=== PATIENT | female | born 1975 | race Hispanic/Latino ===

== ENCOUNTER 2018-10-13 17:40 | Emergency (ER) | payer BC ==
--- NOTE | 2018-10-13 18:31 | RAD ---
EXAM: XR Chest, 1 View CLINICAL HISTORY: palpitations TECHNIQUE: Frontal view of the chest. COMPARISON: No relevant prior studies available. FINDINGS: Limitations: None. Lungs: Unremarkable. No consolidation. Pleural space: Unremarkable. No pneumothorax. Heart: Unremarkable. No cardiomegaly. Mediastinum: Unremarkable. Bones/joints: Unremarkable. IMPRESSION: No abnormality noted. Electronically signed by: Terri Kimble MD 10/13/2018 6:29 PM CDT
--- NOTE | 2018-10-13 19:00 | ED.PDOC ---
History of Present Illness - General Chief Complaint: Cardiovascular Problem Stated Complaint: Palpitations Time Seen by Provider: 10/13/18 17:46 Source: patient Exam Limitations: no limitations - History of Present Illness Initial Comments: The patient's 43-year-old female presented to the emergency room secondary to an episode of tachycardia. The patient has had multiple episodes of tachycardia in the past and has had workups with electrophysiology and hay baler. She does take daily digoxin for it. She felt like it was going extremely fast today and she was feeling short of breath. It resolved by the time EMS arrived. She reports that it lasted 30-40 minutes. No real chest pain just palpitations. She did feel a little diaphoretic. She had just eaten lunch. No syncope. No traumas. Timing/Duration: 1/2 hour Severity: moderate Improving Factors: nothing Worsening Factors: nothing Associated Symptoms: diaphoresis Allergies/Adverse Reactions: Allergies NO KNOWN ALLERGY Allergy (Verified 10/13/18 17:49) Home Medications: Ambulatory Orders Digoxin [Digox] 0.125 mg PO DAILY 10/13/18 Review of Systems - Review of Systems Constitutional: States: malaise EENTM: States: no symptoms reported Respiratory: States: no symptoms reported Cardiology: States: palpitations Gastrointestinal/Abdominal: States: no symptoms reported Genitourinary: States: no symptoms reported Musculoskeletal: States: no symptoms reported Skin: States: no symptoms reported Neurological: States: no symptoms reported All other Systems: No Change from Baseline Past Medical History (General) - Patient Medical History Hx Stroke: No Hx Cardiac Disorders: Yes - Arrhythmia Hx Congestive Heart Failure: No Hx Diabetes: No - Vaccination History Hx Influenza Vaccination: Yes - 2018 - Social History Hx Tobacco Use: No Hx Alcohol Use: No Hx Substance Use: No - Female History Patient is a Female of Child Bearing Age (10 -59 yrs old): Yes Patient : No Family Medical History - Family History Mother Family History: No Known Living Status: Still Living Physical Exam - Physical Exam General Appearance: Alert, Anxious Eye Exam: bilateral normal Ears, Nose, Throat: hearing grossly normal, normal ENT inspection Neck: full range of motion, supple Respiratory: lungs clear, normal breath sounds, no respiratory distress, no acc essory muscle use Cardiovascular/Chest: normal peripheral pulses, regular rate, rhythm, no edema Peripheral Pulses: radial,right: 2+, radial,left: 2+, dorsalis pedis,right: 2+, dorsalis pedis,left: 2+ Gastrointestinal/Abdominal: non tender, soft Rectal Exam: deferred Back Exam: no CVA tenderness, no vertebral tenderness Extremity: non-tender, normal inspection, no pedal edema, no calf tenderness, normal capillary refill Neurologic: relay associate II-XII nml as tested, alert, normal mood/affect, oriented x 3 Skin Exam: normal color Comments: Vital Signs - 24 hr 10/13/18 10/13/18 17:40 18:32 Temperature 97.2 F L Pulse Rate [ 95 H 87 Apical] Respiratory 20 18 Rate Blood Pressure 131/100 97/65 [Left Arm] O2 Sat by Pulse 99 99 Oximetry Progress - Progress Progress: 10/13/18 19:02 the patient a 43-year-old female presenting to the emergency room secondary to an episode ofparoxysmal tachycardia. This had resolved by the time EMS arrived and did not resume while she was monitored here. She remained in normal sinus rhythm with a fairly labile blood pressure. Systolic blood pressures range from the 90s to the 130s. No evidence of significant orthostasis. Laboratory work, EKG and chest x-ray are grossly within normal limits. She needs to continue her digoxin recommended at a nightly dose. She does need to contact her hay baler tomorrow and let them know of the episode today. She does need to keep well hydrated. Keep follow-up with her primary care doctor as well. she should also obtain a blood pressure cuff for as needed use. - Results/Orders Results/Orders: 10/13/18 17:46 Telemetry .CONTINUOUS 10/13/18 18:00 EKG STAT normal sinus rhythm at 81 bpm. Normal QT interval. Normal axis. No ST segment or T-wave changes indicative of acute ischemia. Possible early right bundle branch. Mild left atrial dilation. Chest x-ray shows no acute pathology. tilt vital signs are grossly within normal limits. Laboratory Results - last 24 hr 10/13/18 10/13/18 10/13/18 18:00 18:00 18:00 WBC RBC Hgb Hct MCV MCH MCHC RDW Plt Count MPV Absolute Neuts (auto) Absolute Lymphs (auto) Absolute Monos (auto) Absolute Eos (auto) Absolute Basos (auto) Neutrophils % Lymphocytes % Monocytes % Eosinophils % Basophils % Sodium 139 Potassium 3.7 Chloride 107 Carbon Dioxide 21 Anion Gap 14.7 BUN 9 Creatinine 0.50 L BUN/Creatinine Ratio 18.0 POC Glucose 103 Random Glucose 111 H Serum Osmolality 276.9 Lactic Acid 1.4 Calcium 9.1 Magnesium 2.1 Total Bilirubin 0.7 AST 28 ALT 29 Alkaline Phosphatase 69 Creatine Kinase 61 CK-MB (CK-2) 1.1 CK-MB (CK-2) % Not Reportable Troponin I < 0.02 B-Natriuretic Peptide < 5.0 Serum Total Protein 7.8 Albumin 4.2 Globulin 3.6 H Albumin/Globulin Ratio 1.2 TSH 4.45 Urine Color Urine Appearance Urine pH Ur Specific [place] Urine Protein Urine Glucose (UA) Urine Ketones Urine Blood Urine Nitrite Urine Bilirubin Urine Urobilinogen Ur Leukocyte Esterase Urine RBC Urine WBC Ur Epithelial Cells Amorphous Sediment Urine Bacteria Urine HCG, Qual Digoxin 10/13/18 10/13/18 10/13/18 18:00 18:00 18:15 WBC 8.2 RBC 4.32 Hgb 13.1 Hct 38.8 MCV 90.0 MCH 30.3 MCHC 33.6 RDW 15.4 H Plt Count 254 MPV 9.5 Absolute Neuts (auto) 4.50 Absolute Lymphs (auto) 2.60 Absolute Monos (auto) 1.00 H Absolute Eos (auto) 0.00 Absolute Basos (auto) 0.10 Neutrophils % 54.9 Lymphocytes % 31.4 Monocytes % 12.6 H Eosinophils % 0.4 L Basophils % 0.7 Sodium Potassium Chloride Carbon Dioxide Anion Gap BUN Creatinine BUN/Creatinine Ratio POC Glucose Random Glucose Serum Osmolality Lactic Acid Calcium Magnesium Total Bilirubin AST ALT Alkaline Phosphatase Creatine Kinase CK-MB (CK-2) CK-MB (CK-2) % Troponin I B-Natriuretic Peptide Serum Total Protein Albumin Globulin Albumin/Globulin Ratio TSH Urine Color Urine Appearance Urine pH Ur Specific [place] Urine Protein Urine Glucose (UA) Urine Ketones Urine Blood Urine Nitrite Urine Bilirubin Urine Urobilinogen Ur Leukocyte Esterase Urine RBC Urine WBC Ur Epithelial Cells Amorphous Sediment Urine Bacteria Urine HCG, Qual Negative Digoxin 0.3 L 10/13/18 18:15 WBC RBC Hgb Hct MCV MCH MCHC RDW Plt Count MPV Absolute Neuts (auto) Absolute Lymphs (auto) Absolute Monos (auto) Absolute Eos (auto) Absolute Basos (auto) Neutrophils % Lymphocytes % Monocytes % Eosinophils % Basophils % Sodium Potassium Chloride Carbon Dioxide Anion Gap BUN Creatinine BUN/Creatinine Ratio POC Glucose Random Glucose Serum Osmolality Lactic Acid Calcium Magnesium Total Bilirubin AST ALT Alkaline Phosphatase Creatine Kinase CK-MB (CK-2) CK-MB (CK-2) % Troponin I B-Natriuretic Peptide Serum Total Protein Albumin Globulin Albumin/Globulin Ratio TSH Urine Color Yellow Urine Appearance Clear Urine pH 6.5 Ur Specific [place] 1.010 Urine Protein Negative Urine Glucose (UA) Negative Urine Ketones Negative Urine Blood Negative Urine Nitrite Negative Urine Bilirubin Negative Urine Urobilinogen 0.2 Ur Leukocyte Esterase Negative Urine RBC 0 Urine WBC 0 Ur Epithelial Cells 0-1 Amorphous Sediment 1+ Urine Bacteria 0 Urine HCG, Qual Digoxin Departure - Departure Clinical Impression: Paroxysmal tachycardia, unspecified Disposition: Discharge to Home or Self Care Condition: Fair Departure Forms: ED Discharge - Pt. Copy, Patient Portal Self Enrollment Instructions: Palpitations (DC) Diet: regular diet Activity: increase activity as tolerated Referrals: UNKNOWN,PHYSICIAN [Primary Care Provider] - 1-2 Weeks Home Medications: Ambulatory Orders Digoxin [Digox] 0.125 mg PO DAILY 10/13/18 Additional Instructions: the patient a 43-year-old female presenting to the emergency room secondary to an episode ofparoxysmal tachycardia. This had resolved by the time EMS arrived and did not resume while she was monitored here. She remained in normal sinus rhythm with a fairly labile blood pressure. Systolic blood pr essures range from the 90s to the 130s. No evidence of significant orthostasis. Laboratory work, EKG and chest x-ray are grossly within normal limits. She needs to continue her digoxin recommended at a nightly dose. She does need to contact her hay baler tomorrow and let them know of the episode today. She does need to keep well hydrated. Keep follow-up with her primary care doctor as well. she should also obtain a blood pressure cuff for as needed use.
[2018-10-13 19:03] VITALS: O2SAT 98
[2018-10-13 19:24] VITALS: BP 107/73; TEMP 97.8
== END 2018-10-13 19:24 | disposition home or self-care (01) ==
LOC: ER 17:40
DX: I47.9 Paroxysmal tachycardia, unspecified (principal)

== ENCOUNTER 2019-06-19 03:24 | Emergency (ER) | payer BC ==
[2019-06-19] MEDS ORDERED: SODIUM CHLORIDE 0.9% (FLUSH) 10 ML SYG IV PRN (03:31)
--- NOTE | 2019-06-19 04:00 | ED.PDOC ---
History of Present Illness - General Chief Complaint: Neuro Symptoms/Deficits Stated Complaint: unable to speak Time Seen by Provider: 06/19/19 03:29 Source: patient, family - History of Present Illness Initial Comments: 44 yo female who is bib from home for cc of trouble speaking. Onset acutely while awake and having an argument with her at home. Pt with marked difficulty in verbal communication but able to communicate via writing. States she knows the words she wants to say but they don't come out right when she talks - comes out as "garbled speech." states this has actually happened before in the last year or so but lasted for only about 15 minutes and resolved on its own at home. Also reports acute headache to the left side of her head which began at the same time as her speech symptoms. Currently rates as a 6/10 severity but states is waxing and waning in nature. Pt denies any other acute symptoms. Denies any weakness, numbness, hearing/vision changes, c hest pain, dyspnea, abd pain, n/v/d, leg swelling, cough, fevers. Pt has some hx of recurrent chest pains and is also being evaluated by Dr. Benjamin" at [facility]. 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 She admits to not taking the Ranolazine as she should. Allergies/Adverse Reactions: Allergies NO KNOWN ALLERGY Allergy (Verified 10/13/18 17:49) Home Medications: Ambulatory Orders Aspirin [(None)] 325 mg PO QD 06/19/19 RX: Nitroglycerin 0.4 mg SL 06/19/19 Ranolazine [Ranexa] 500 mg PO BID 06/19/19 Review of Systems - Review of Systems Review of Systems: 06/19/19 04:01 as per HPI All other Systems: Reviewed and Negative Past Medical History (General) - Patient Medical History Hx Stroke: No Hx Cardiac Disorders: Yes - Arrhythmia, Microvascular Angina Hx Congestive Heart Failure: No Hx Diabetes: No - Vaccination History Hx Tetanus, Diphtheria Vaccination: No Hx Influenza Vaccination: No Hx Pneumococcal Vaccination: No Immunizations Up to Date: No - Social History Hx Tobacco Use: No Hx Alcohol Use: No Hx Substance Use: No - Female History Patient is a Female of Child Bearing Age (10 -59 yrs old): Yes Patient : No - Triage Comment ED Triage Comment: Patient denies any chance that she could be despite LMP Family Medical History - Family History Mother Family History: No Known Living Status: Still Living Physical Exam - Physical Exam General Appearance: Alert, Anxious Eye Exam: bilateral normal Ears, Nose, Throat: hearing grossly normal, normal ENT inspection, normal pharynx Neck: non-tender, full range of motion, supple, normal inspection Respiratory: lungs clear, normal breath sounds, no respiratory distress, no accessory muscle use Cardiovascular/Chest: normal peripheral pulses, regular rate, rhythm, no edema, no murmur Peripheral Pulses: radial,right: 2+, radial,left: 2+ Gastrointestinal/Abdominal: non tender, soft, no organomegaly Back Exam: normal inspection, no CVA tenderness, no vertebral tenderness Extremity: normal range of motion, non-tender, normal inspection, no pedal edema, no calf tenderness Neurologic: running rigger II-XII nml as tested, no motor/sensory deficits, alert, normal mood/affect, oriented x 3, aphasia - Speech is fluent and all words are comprehensible but words are slightly slurred and spoken in a manner similar to a deaf person. Able to distinguish 3 items with ease. Able to communicate via pen and paper without any issues. Skin Exam: normal color, warm/dry Progress - Progress Progress: 06/19/19 04:05 Acute aphasia -isolated symptom but significant impairment -concern for acute CVA. Consider also psychosomatic, anxiety, abuse, ICH, other -initial NIH score of 3 (severe aphasia + ?slurred speech) but causing significant functional impairment -stat CT head and stroke protocol, urgent neurology consult once CT head read back for potential tPA if no hemorrhage present -labs, EKG, CXR, UA 06/19/19 04:45 -CT head report slightly delayed given technical issues so verbal report given to me - no acute processes -Spoke with Dr. Marinelli at [facility] in [place] who advises no tPA to be given. Feels not c/w true stroke presentation/pattern. 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 She advises transfer to the ED there for MRI brain imaging, which is not available here until Thursday morning unfortunately. -Discussed with pt & her who are in agreement with this plan. All questions answered. Will give ASA 324 mg PO as precautionary measure. -Remains stable, will go via ground EMS. Michael Garcia MD Billing #[id number] 06/19/19 03:31 IV Care:Saline Lock per Protoc QSHIFT Telemetry .ONCE 06/19/19 03:45 EKG STAT Laboratory Results - last 24 hr 06/19/19 06/19/19 06/19/19 03:37 03:37 03:37 WBC 7.9 RBC 4.23 Hgb 13.1 Hct 38.8 MCV 91.5 MCH 30.9 MCHC 33.8 RDW 15.4 H Plt Count 244 MPV 10.2 Absolute Neuts (auto) 5.40 Absolute Lymphs (auto) 1.50 Absolute Monos (auto) 0.90 H Absolute Eos (auto) 0.00 Absolute Basos (auto) 0.00 Neutrophils % 68.2 Lymphocytes % 19.6 L Monocytes % 11.4 H Eosinophils % 0.2 L Basophils % 0.6 PT 10.5 INR 1.06 PTT (SP) 24.7 Sodium 137 Potassium 3.8 Chloride 107 Carbon Dioxide 18 L Anion Gap 15.8 BUN 16 Creatinine 0.68 BUN/Creatinine Ratio 23.5 H Random Glucose 114 H Serum Osmolality 275.9 Calcium 9.4 Total Bilirubin 0.8 AST 24 ALT 25 Alkaline Phosphatase 60 Troponin I B-Natriuretic Peptide < 5.0 Serum Total Protein 8.1 Albumin 4.4 Globulin 3.7 H Albumin/Globulin Ratio 1.2 Urine Color Urine Appearance Urine pH Ur Specific [place] Urine Protein Urine Glucose (UA) Urine Ketones Urine Blood Urine Nitrite Urine Bilirubin Urine Urobilinogen Ur Leukocyte Esterase Urine RBC Urine WBC Ur Epithelial Cells Urine Bacteria 06/19/19 06/19/19 03:37 04:10 WBC RBC Hgb Hct MCV MCH MCHC RDW Plt Count MPV Absolute Neuts (auto) Absolute Lymphs (auto) Absolute Monos (auto) Absolute Eos (auto) Absolute Basos (auto) Neutrophils % Lymphocytes % Monocytes % Eosinophils % Basophils % PT INR PTT (SP) Sodium Potassium Chloride Carbon Dioxide Anion Gap BUN Creatinine BUN/Creatinine Ratio Random Glucose Serum Osmolality Calcium Total Bilirubin AST ALT Alkaline Phosphatase Troponin I < 0.02 B-Natriuretic Peptide Serum Total Protein Albumin Globulin Albumin/Globulin Ratio Urine Color Yellow Urine Appearance Clear Urine pH 5.5 Ur Specific [place] 1.020 Urine Protein Negative Urine Glucose (UA) Negative Urine Ketones Negative Urine Blood Negative Urine Nitrite Negative Urine Bilirubin Negative Urine Urobilinogen 0.2 Ur Leukocyte Esterase Negative Urine RBC 0 Urine WBC 0 Ur Epithelial Cells 3-5 Urine Bacteria 0 - EKG/XRAY/CT EKG: Sinus - NSR, HR 90, no ST elevs or q waves, nonspecific min ST segment changes in inf & lateral leads noted, axis & intervals normal, appears largely unchanged from 10/13/18 EKG. XRAY: chest - no acute processes per my read Departure - Departure Clinical Impression: Aphasia Time of Disposition: 04:59 Disposition: Transfer to Hospital Condition: Fair Departure Forms: ED Discharge - Pt. Copy, Patient Portal Self Enrollment Referrals: UNKNOWN,PHYSICIAN [Primary Care Provider] - 1-2 Weeks Home Medications: Ambulatory Orders Aspirin [(None)] 325 mg PO QD 06/19/19 RX: Nitroglycerin 0.4 mg SL 06/19/19 Ranolazine [Ranexa] 500 mg PO BID 06/19/19 Transfer to Outside Facility - Transfer Information Decision to Transfer Date: 06/19/19 Decision to Transfer Time: 05:00 Reason for Transfer: required specialist not available - neurology Accepting Provider:: Dr. Mc Accepting Facility: [facility]
[2019-06-19 04:03] VITALS: O2SAT 100
[2019-06-19] MEDS ORDERED: ALTEPLASE 0 MG ONE (04:14)
--- NOTE | 2019-06-19 04:53 | CT ---
CT head without contrast on 06/19/2019 CLINICAL INDICATION: Acute aphasia TECHNIQUE: Multiple axial images are obtained throughout the head without the administration of contrast. This exam was performed according to our departmental dose-optimization program, which includes automated exposure control, adjustment of the mA and/or kV according to patient size and/or use of iterative reconstruction technique. Total DLP is 859.97 mGy*cm. COMPARISON: None FINDINGS: There is no hydrocephalus. There is no CT evidence of acute infarct. There is no hemorrhage. There are no abnormal extra-axial fluid collections. There is no mass, mass effect or midline shift. No bony abnormality is noted. IMPRESSION: No acute intracranial abnormality. Initially there was technical difficulty and this exam was unavailable to be dictated. A verbal report was given by myself by phone to Dr. Michael Garcia on 06/19/2019 at 4:34 AM. Electronically signed by: Jeff Tapia 06/19/2019 4:52 AM CDT
--- NOTE | 2019-06-19 04:55 | RAD ---
EXAM: XR Chest, 1 View CLINICAL HISTORY: The patient is 44 years old and is Female; stroke-like symptoms TECHNIQUE: Frontal view of the chest. COMPARISON: No relevant prior studies available. FINDINGS: LUNGS: Unremarkable. No consolidation. PLEURAL SPACE: Unremarkable. No pneumothorax. HEART: Unremarkable. No cardiomegaly. MEDIASTINUM: Unremarkable. BONES/JOINTS: Unremarkable. IMPRESSION: No acute cardiopulmonary process. Electronically signed by: Lizette Velásquez MD 06/19/2019 4:54 AM CDT
[2019-06-19 05:03] VITALS: BP 103/70
[2019-06-19 05:06] VITALS: TEMP 99.3
[2019-06-19] MEDS ORDERED: ASPIRIN (CHEWABLE) 81 MG TAB PO ONE (05:20)
== END 2019-06-19 05:27 | disposition short-term general hospital (02) ==
LOC: ER 03:24
DX: R47.01 Aphasia (principal); R51 Headache; I20.8 Other forms of angina pectoris; Z79.899 Other long term (current) drug therapy; Z79.82 Long term (current) use of aspirin

== ENCOUNTER 2020-01-19 15:30 | Emergency (ER) | payer BC ==
--- NOTE | 2020-01-19 15:49 | ED.PDOC ---
History of Present Illness - General Chief Complaint: Headache Stated Complaint: Occipital headache, burry vision, dizziness Time Seen by Provider: 01/19/20 15:32 Source: patient, RN notes reviewed, Vital Signs reviewed Exam Limitations: no limitations - History of Present Illness Initial Comments: 44 yo F comes in with c/c of occipital headache. states it was sharp, lasted 7- 10 minutes. started while she was at work. States she use to get these all the time, but has not had one in 2 months. States she was going to come to the ER, but they checked her bp at it was 170 systolic. Does not have hx of HTN. currently no headache, no weakness, no change in vision. She also states she got what felt like a hot flash during this episode. no chest pain , shortness of breath or fever. Allergies/Adverse Reactions: Allergies NO KNOWN ALLERGY Allergy (Verified 01/19/20 15:53) Past Medical History (General) - Patient Medical History Hx Stroke: No Hx Cardiac Disorders: Yes - Arrhythmia, Microvascular Angina Hx Congestive Heart Failure: No Hx Diabetes: No - Vaccination History Hx Tetanus, Diphtheria Vaccination: No Hx Influenza Vaccination: No Hx Pneumococcal Vaccination: No - Social History Hx Tobacco Use: No Hx Alcohol Use: No Hx Substance Use: No - Female History Hx Last Menstrual Period: 04/21/19 Patient : No Family Medical History - Family History Mother Family History: No Known Living Status: Still Living Physical Exam - Physical Exam General Appearance: Alert, Comfortable, No apparent distress, Well Developed, Well Groomed, Well Hydrated, Well Nourished Eyes, Ears, Nose, Throat Exam: PERRL/EOMI, normal ENT inspection, TMs normal Neck: non-tender, full range of motion, supple, normal inspection, trachea midli ne Cardiovascular/Chest: normal peripheral pulses, regular rate, rhythm, no edema, no gallop, no JVD, no murmur Respiratory: chest non-tender, lungs clear, normal breath sounds, no respiratory distress, no accessory muscle use Gastrointestinal/Abdominal: normal bowel sounds, non tender, soft, no organomegaly Back Exam: normal inspection Extremity: normal range of motion, normal inspection, no calf tenderness Mental Status: alert, oriented x 3 surgical scrub tech Exam: normal hearing, normal speech, PERRL Coordination/Gait: normal finger to nose, normal gait, negative Romberg's sign Motor/Sensory: no motor deficit, no sensory deficit, no pronator drift Skin Exam: warm/dry, normal color Progress - Progress Progress: 01/19/20 16:26 01/19/20 16:00 TROPONIN-I Stat Laboratory Results WBC 6.6 K/mm3 (4.8-10.8) 01/19/20 16:00 RBC 4.08 M/mm3 (4.20-5.40) L 01/19/20 16:00 Hgb 12.3 gm/dL (12.0-16.0) 01/19/20 16:00 Hct 36.5 % (36.0-47.0) 01/19/20 16:00 MCV 89.6 fl (81.0-99.0) 01/19/20 16:00 MCH 30.2 pg (27.0-31.0) 01/19/20 16:00 MCHC 33.7 g/dL (33.0-37.0) 01/19/20 16:00 RDW 15.6 % (11.5-14.5) H 01/19/20 16:00 Plt Count 241 K/mm3 (130-400) 01/19/20 16:00 MPV 9.3 fl (7.40-10.4) 01/19/20 16:00 Absolute Neuts (auto) 3.90 K/uL (1.8-6.8) 01/19/20 16:00 Absolute Lymphs (auto) 1.80 K/uL (1.0-3.4) 01/19/20 16:00 Absolute Monos (auto) 0.80 K/uL (0.2-0.8) 01/19/20 16:00 Absolute Eos (auto) 0.00 K/uL (0.0-0.4) 01/19/20 16:00 Absolute Basos (auto) 0.10 K/uL (0.0-0.1) 01/19/20 16:00 Neutrophils % 58.6 % (42.0-78.0) 01/19/20 16:00 Lymphocytes % 27.6 % (20.0-50.0) 01/19/20 16:00 Monocytes % 12.4 % (2.0-9.0) H 01/19/20 16:00 Eosinophils % 0.4 % (1.0-5.0) L 01/19/20 16:00 Basophils % 1.0 % (0.0-2.0) 01/19/20 16:00 Sodium 138 mmol/L (135-145) 01/19/20 16:00 Potassium 3.6 mmol/L (3.6-5.0) 01/19/20 16:00 Chloride 104 mmol/L (101-111) 01/19/20 16:00 Carbon Dioxide 26 mmol/L (21-31) 01/19/20 16:00 Anion Gap 11.6 (12-18) L 01/19/20 16:00 BUN 10 mg/dL (7-18) 01/19/20 16:00 Creatinine 0.63 mg/dL (0.6-1.3) 01/19/20 16:00 BUN/Creatinine Ratio 15.9 (10-20) 01/19/20 16:00 Random Glucose 108 mg/dL (70-105) H 01/19/20 16:00 Serum Osmolality 275.3 mOsm/L (275-295) 01/19/20 16:00 Calcium 8.7 mg/dL (8.4-10.2) 01/19/20 16:00 Magnesium 2.1 mg/dL (1.8-2.5) 01/19/20 16:00 Total Bilirubin 0.7 mg/dL (0.2-1.0) 01/19/20 16:00 AST 20 IU/L (10-42) 01/19/20 16:00 ALT 28 IU/L (10-60) 01/19/20 16:00 Alkaline Phosphatase 75 IU/L (42-121) 01/19/20 16:00 Serum Total Protein 7.6 gm/dL (6.4-8.2) 01/19/20 16:00 Albumin 4.0 g/dl (3.2-5.5) 01/19/20 16:00 Globulin 3.6 gm/dL (2.3-3.5) H 01/19/20 16:00 Albumin/Globulin Ratio 1.1 (1.1-1.9) 01/19/20 16:00 01/19/20 16:27 The data reviewed when caring for this patient included: nurse notes, prior records, etc. The history and assessments from nurses notes were reviewed and considered, and the patient's home medication list was also reviewed and considered. My assessment and the results of testing completed here in the ED were discussed with the patient/family. All questions were answered, and they express understanding of my assessment and the plan. They have been instructed to return if their symptoms worsen, and have been asked to follow up with their primary care physician to recheck today's presenting complaint. return precautions given. I have reviewed medication, benefits, alternatives and side effects. Patient decided to proceed with medication. Colleen Razo DO #[id number] - EKG/XRAY/CT CT: head no acute ic pathology. Departure - Departure Clinical Impression: Headache Qualifiers: Headache type: unspecified Headache chronicity pattern: unspecified pattern Intractability: not intractable Qualified Code(s): R51.9 - Headache, unspecified ICD-10 Supporting Text: elevated bp without diagnosis of htn Time of Disposition: 16:26 Disposition: Discharge to Home or Self Care Departure Forms: ED Discharge - Pt. Copy, Patient Portal Self Enrollment Instructions: DI for Headache, Headache, Adult Diet: resume usual diet Activity: increase activity as tolerated Additional Instructions: Magnesium oxide 400 mg every days as needed for headaches. Follow up with your primary care physician.
[2020-01-19 15:53] VITALS: O2SAT 99
--- NOTE | 2020-01-19 16:20 | CT ---
EXAM DESCRIPTION: Head CLINICAL HISTORY: headache COMPARISON: June 19, 2019 TECHNIQUE: Noncontrast transaxial CT images of the head are obtained from base to vertex. This exam was performed according to our departmental dose-optimization program, which includes automated exposure control, adjustment of the mA and/or kV according to patient size and/or use of iterative reconstruction technique. FINDINGS: The midline structures are not displaced. The sulci are age appropriate. The lateral, third, and fourth ventricles are normal in size, shape, and anatomic positioning. There is no evidence of mass, mass effect, hydrocephalus, or acute intracranial hemorrhage. No abnormal extra axial fluid collections are seen. Normal whittaker-white differentiation is seen. The visualized bone windows show no depressed skull fracture or significant abnormality. The visualized paranasal sinuses and mastoid air cells are clear. IMPRESSION: 1. No acute abnormality is seen on noncontrast CT of the head. Electronically signed by: Jono Fisher MD 01/19/2020 4:18 PM [facility]
[2020-01-19 16:54] VITALS: BP 100/75; TEMP 97.5
== END 2020-01-19 16:54 | disposition home or self-care (01) ==
LOC: ER 15:30
DX: R51.9 Headache, unspecified (principal); R42 Dizziness and giddiness; H53.8 Other visual disturbances; R03.0 Elevated blood-pressure reading, without diagnosis of hypertension